=== PATIENT | female | born 1995 | race Caucasian/White ===

== ENCOUNTER → 2017-01-30 | Outpatient (CLI) | payer OTHER ==
[~2017-01-30] MED LIST: ADDERALL5 MG PO; ALBUTEROL-200 PUFFS/ IH; MOTRIN 400MG.400 MG PO; RISPERDAL1 MG PO
--- NOTE | 2017-01-30 10:20 | RADIOLOGY REPORT PS360 ---
US RUQ-(ABD LTD)1ORGAN/QUAD/FU HISTORY: Abdominal pain, diarrhea, cramping ABDOMINAL PAIN ORDERING PHYSICIAN: Stoney Ravi MD PATIENT AGE: 21 years COMPARISON: None FINDINGS: PANCREAS:Unremarkable. No obvious mass or abnormal fluid collection. No ductal dilatation LIVER:No focal liver lesions demonstrated. Homogeneous echogenicity. No intrahepatic biliary ductal dilatation evident RIGHT KIDNEY:Unremarkable. Normal size and echogenicity. No hydronephrosis GALLBLADDER:No gallstones, gallbladder wall thickening, pericholecystic fluid, or biliary dilatation. IMPRESSION: Unremarkable right upper quadrant ultrasound
== END ==
LOC: RAD 08:31
DX: R10.11 Right upper quadrant pain (principal)